=== PATIENT | female | born 1940 | race Caucasian/White ===

== ENCOUNTER 2016-10-12 22:55 | Emergency (ER) | payer OTHER ==
[~2016-10-12] VITALS: Ht 160 cm; Wt 72.6 kg
[~2016-10-12 22:55] MED LIST: ASPIRIN EC81 M1 PO; AUGMENTIN 875-1 EACH PO; BIOTIN1 M1 PO; FLAGYL500 MG PO; LEVOTHYROXINE75 MCG PO; LISINOPRIL20 M1 PO; PROPRANOLOL HCL20 M1 PO; VENLAFAXINE H37.5 M1 PO; VENLAFAXINE HCL75 M1 PO
--- NOTE | 2016-10-13 01:32 | RADIOLOGY REPORT ---
EXAMINATION: XR HAND, RIGHT CLINICAL INFORMATION: Swelling. Rule out fracture. COMPARISON: None TECHNIQUE: AP, lateral, and oblique views of the right hand. FINDINGS: First CMC joint prosthesis is present. No periprosthetic fracture or significant periprosthetic osteolysis. There is marked soft tissue swelling at the dorsum of the hand overlying the metacarpals. No underlying acute fractures are identified. There is moderate to severe degenerative arthritis of the first CMC joint. Moderate degenerative arthritis is also present within the second and third MCP joints and multiple interphalangeal joints, most notably the second and third DIP joints. No erosions are identified. Radiocarpal joint appears relatively well-preserved. IMPRESSION: 1. Marked soft tissue swelling at the dorsum of the right hand without underlying fracture. 2. Moderate multifocal degenerative arthritis, most severe at the triscaphe joint, second and third MCP joints, and a few DIP joints 3. Intact first CMC arthroplasty.
--- NOTE | 2016-10-13 01:47 | ED UPPER/LOWER EXTREMITY COMPL ---
History of Present Illness General Chief Complaint: Hand or Wrist Injury Stated Complaint: RIGHT HAND PAIN Source: patient Exam Limitations: no limitations Vital Signs & Intake/Output Vital Signs & Intake/Output Vital Signs Date Time Temp Pulse Resp B/P Pulse O2 O2 Flow FiO2 Ox Delivery Rate 10/13 0219 96.8 88 18 175/80 98 Room Air 10/13 0201 98 Room Air 10/12 2306 98.9 69 16 185/90 100 Room Air ED Intake and Output 10/13 0000 10/12 1200 Intake Total Output Total Balance Patient 160 lb Weight Allergies Coded Allergies: Sulfa (Sulfonamide Antibiotics) (Mild, RASH 03/21/16) Reconcile Medications Amoxicillin/Potassium Clav (Augmentin 875-125 Tablet) 1 EACH TABLET 1 TAB PO BID acute diverticulitis PLEASE TAKE UNTIL ENTIRE BOTTLE IS FINISHED. Aspirin (Ecotrin*) 81 MG TABLET.DR 1 TAB PO DAILY HEART HEALTH (Reported) Biotin 1 MG TABLET 1 TAB PO DAILY SUPPLEMENT (Reported) Levothyroxine Sodium 75 MCG TABLET 1 TAB PO DAILY Hypothyroidism (Reported) Lisinopril 20 MG TABLET 1 TAB PO DAILY HEART (Reported) Metronidazole (Flagyl) 500 MG TABLET 1 TAB PO BID acute diverticulitis DO NOT DRINK ANY ALCOHOL WHILE TAKING THIS ANTIBIOTIC. PLEASE TAKE UNTIL ENTIRE BOTTLE IS FINISHED. Propranolol HCl 20 MG TABLET 1 TAB PO BID HEART (Reported) Venlafaxine HCl (Venlafaxine HCl ER) 225 MG TAB.ER.24 1 TAB PO QPM MENTAL HEALTH (Reported) Triage Note: PT TO ED FOR SWELLING AND BRUISING TO R HAND, PT ON XARELTO FOR PE PREVENTION. CAN'T REMEMBER IF SHE INJURED IT OR ANY TRAUMA. REPORTS HAND ACHING BUT NORMAL ROM +PULSES AND SENSATION. Triage Nurses Notes Reviewed? yes Onset: Abrupt Duration: hour(s): Timing: single episode today Severity: moderate Pain/Injury Location: Right: Hand. Method of Injury: unknown Modifying Factors: Improves With: rest. Associated Symptoms: swelling, "like a big bruise" Patient currently breastfeeds: No HPI: 75 yo woman on xarelto with swelling of right hand. She does not recall any trauma. She is otherwise well. Past History Travel History Traveled to [place] past 21 day No Medical History Any Pertinent Medical History? 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 No Review of Systems Review of Systems Constitutional: Reports: no symptoms. EENTM: Reports: no symptoms. Respiratory: Reports: no symptoms. Cardiovascular: Reports: no symptoms. Gastrointestinal/Abdominal: Reports: no symptoms. Genitourinary: Reports: no symptoms. Musculoskeletal: Reports: no symptoms. Skin: Reports: no symptoms. Neurological/Psychological: Reports: no symptoms. Hematologic/Endocrine: Reports: no symptoms. Immunological: Reports: no symptoms. All Other Systems: Reviewed and Negative Physical Exam Physical Exam General Appearance: well developed/nourished, mild distress Head: atraumatic Eyes: Bilateral: normal appearance. Ears, Nose, Throat: normal pharynx, normal ENT inspection, hearing grossly normal Neck: normal inspection, supple Cardiovascular/Respiratory: regular rate/rhythm Back: normal inspection Hand Right: [id number] hematoma on dorsum of right hand. no sign of infection. no focal bony tenderness. Skin: intact, normal color, warm/dry Lymphatic: no anterior cervical starr Progress Differential Diagnosis: hematoma vs other. Plan of Care: tabitha bandage to right hand... instructed patient to elevate arm... close follow up advised. Diagnostic Imaging: Viewed by Me: Radiology Read. Discussed w/RAD: Radiology Read. Radiology Impression: right hand... no fx,.... djd... hematoma Comments: PATIENT: CHARLENE MANUEL PRESENT AGE: 75 PATIENT ACCOUNT NO: [id number] : 39 LOCATION: [facility] ORDERING PHYSICIAN: JOSE ALONZO DO SERVICE DATE: 10/12/16 EXAM TYPE: RAD - XRY-HAND, RIGHT EXAMINATION: XR HAND, RIGHT CLINICAL INFORMATION: Swelling. Rule out fracture. COMPARISON: None TECHNIQUE: AP, lateral, and oblique views of the right hand. FINDINGS: First CMC joint prosthesis is present. No periprosthetic fracture or significant periprosthetic osteolysis. There is marked soft tissue swelling at the dorsum of the hand overlying the metacarpals. No underlying acute fractures are identified. There is moderate to severe degenerative arthritis of the first CMC joint. Moderate degenerative arthritis is also present within the second and third MCP joints and multiple interphalangeal joints, most notably the second and third DIP joints. No erosions are identified. Radiocarpal joint appears relatively well-preserved. IMPRESSION: 1. Marked soft tissue swelling at the dorsum of the right hand without underlying fracture. 2. Moderate multifocal degenerative arthritis, most severe at the triscaphe joint, second and third MCP joints, and a few DIP joints 3. Intact first CMC arthroplasty. DICTATED BY: SHAGUFTA ELMORE MD DATE/TIME DICTATED:10/13/16125 OFFSHORING MANAGER:KYRA DATE/TIME TRANSCRIBED:10/13/16125 CONFIDENTIAL, DO NOT COPY WITHOUT APPROPRIATE AUTHORIZATION. <Electronically signed in Other Vendor System> SIGNED BY: SHAGUFTA ELMORE MD 10/13/16 0132 Departure Departure Disposition: HOME OR SELF CARE Condition: Stable Clinical Impression Primary Impression: Osteoarthritis Secondary Impressions: Hematoma Referrals: UNKNOWN (PCP/Family) Departure Forms: Customer Survey General Discharge Information
[2016-10-13 02:19] VITALS: BP 175/80
== END 2016-10-13 02:19 ==
LOC: ERH 22:55
DX: S60.221A Contusion of right hand, initial encounter (principal); M19.041 Primary osteoarthritis, right hand; X58.XXXA Exposure to other specified factors, initial encounter
CPT/HCPCS: 73130-RT

== ENCOUNTER 2017-03-12 09:50 | Emergency (ER) | payer OTHER ==
[~2017-03-12] VITALS: Ht 160 cm; Wt 76.2 kg
[2017-03-12] MEDS ORDERED: XARELTO10 M2 PO (10:32)
--- NOTE | 2017-03-12 10:35 | ED GENERAL ADULT ---
History of Present Illness General Chief Complaint: General Adult Stated Complaint: N/V/D,ABDOMINAL PAIN,SYNCOPE Source: patient, old records Exam Limitations: no limitations Vital Signs & Intake/Output Vital Signs & Intake/Output Vital Signs Date Time Temp Pulse Resp B/P B/P Pulse O2 O2 Flow FiO2 Mean Ox Delivery Rate 03/12 1215 73 18 138/83 98 Room Air 03/12 1015 96.0 80 18 113/77 99 Room Air Allergies Coded Allergies: Sulfa (Sulfonamide Antibiotics) (Mild, RASH 03/21/16) Reconcile Medications Biotin 1 MG TABLET 1 TAB PO DAILY SUPPLEMENT (Reported) Hyoscyamine (Levsin) 0.125 MG TABLET 1 TAB PO Q4 PRN abdominal spasms Levothyroxine Sodium 75 MCG TABLET 1 TAB PO DAILY Hypothyroidism (Reported) Lisinopril 20 MG TABLET 1 TAB PO DAILY HEART (Reported) Ondansetron (Zofran Odt) 4 MG TAB.RAPDIS 1 TAB SL TID PRN nausea Propranolol HCl 20 MG TABLET 1 TAB PO BID HEART (Reported) Rivaroxaban (Xarelto) 10 MG TABLET 1 TAB PO DAILY BLOOD THINNER (Reported) Venlafaxine HCl (Venlafaxine HCl ER) 75 MG CAP.ER.24H 1 CAP PO DAILY MENTAL HEALTH (Reported) Triage Note: C/O LOWER ABDOMINAL CRAMPING AND DIARRHEA X 6 HOURS. VOMITED A FEW DAYS. ALSO C/O WEAKNESS AND LEG CRAMPS. STATES SHE HAD A SIMILIAR EPISODE LAST WEEK. Triage Nurses Notes Reviewed? yes Onset: Gradual Duration: hour(s): (7) Timing: remote history Injury Environment: home Severity: moderate No Modifying Factors: none HPI: Patient is a 76-year-old female with history of diverticulitis, sigmoidectomy presenting to the emergency Department with chief complaint of lower and upper abdominal cramping with watery diarrhea has been going on for the past 7-8 hours. She also reports an associated episode of nausea with 2 episodes of emesis during this time. Patient reports 4 episodes of loose watery stool. No blood in the stool. Denies any dark stool. No fevers or chills. No recent travel or recent antibiotic use. Denies taking anything to help with symptoms, she reports that she had similar symptoms last weekend which resolved with Pepto -Bismol. She had a sigmoidectomy done 8 months ago with no complications since. Her surgeon was someone out of [place] who is now in [place]. Denies any urinary frequency or urgency or dysuria. Also reporting leg cramping since onset of nausea vomiting and diarrhea. She has not been able to take anything by mouth since last night. (ADDI ART) Past History Travel History Traveled to [place] past 21 day No Medical History Any Pertinent Medical History? 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 No (ADDI ART) Review of Systems Review of Systems Constitutional: Reports: malaise, weakness. Comments Review of systems: See HPI, All other systems negative. Constitutional, no chills fever or weight loss HEENT: No visual changes no sore throat no congestion Cardiovascular: No chest pain ,palpitation , orthopnea or ankle swelling Skin, no jaundice no rashes Respiratory: No dyspnea cough sputum or hemoptysis GI: pos n/v/d : No dysuria No hematuria Muscle skeletal: no back pain, no neck pain, Neurologic: No numbness no confusion no boss Psych: No stress anxiety or depression,. Heme/endocrine: No bruising no bleeding no polyuria or polydipsia Immunology: No splenectomy or history of AIDS (ADDI ART) Physical Exam Physical Exam General Appearance: well developed/nourished, no apparent distress, alert, awake , comfortable Comments: Well-developed well-nourished person in no acute distress HEENT: Normal EENT exam, extraocular motion intact, no nystagmus. Pupils equally round and reactive to light and accommodation. Nose is atraumatic. External auditory canal and Tympanic membranes clear. Pharynx normal. No swelling or edema. Neck: Supple, no lymphadenopathy, normal range of motion without pain or tenderness Back: Nontender, no CVA tenderness. Full range of motion Cardiovascular: Regular rate and rhythms no murmurs rubs or gallops, normal JVP Respiratory: Chest nontender. No respiratory distress.breath sounds clear to auscultation bilaterally Abdomen: Soft, mild tenderness of palpation in the right upper quadrant and periumbilical region, no rebound or guarding, nondistended, no appreciable organomegaly. Normal bowel sounds. No ascites Extremity: No edema, no calf tenderness to palpation, normal and equal pulses. Neuro: Alert oriented x3, motor sensory normal, cranial nerves II through XII grossly intact. Cerebellar testing is unremarkable. Skin: No appreciable rash on exposed skin, skin is warm and dry. Psych: Mood and affect is normal, memory and judgment is normal. Core Measures ACS in differential dx? No CVA/TIA Diagnosis: No Severe Sepsis Present: No Septic Shock Present: No (MORENITA OWUSU,ADDI) Progress Differential Diagnoses I considered the following diagnoses in my evaluation of the patient: Diverticulitis, diverticulosis, dehydration, likely abnormality Plan of Care: Orders Procedure Date/time Status URINALYSIS 03/12 1053 Complete TROPONIN LEVEL 03/12 1053 Complete LIPASE 03/12 1053 Complete LACTIC ACID 03/12 1053 Complete COMPREHENSIVE METABOLIC PANEL 03/12 1053 Complete CBC WITHOUT DIFFERENTIAL 03/12 1053 Complete EKG 03/12 1053 Active Laboratory Tests 03/12/17 1353: Lactic Acid Cancelled 03/12/17 1227: Urine Color STRAW, Urine Clarity CLEAR, Urine pH 6.0, Ur Specific [place] 1.010, Urine Protein NEG, Urine Ketones NEG, Urine Nitrite NEG, Urine Bilirubin NEG, Urine Urobilinogen 0.2, Ur Leukocyte Esterase NEG, Ur Microscopic EXAM NOT REQUIRED, Urine Hemoglobin NEG, Urine Glucose NEG 03/12/17 1126: Anion Gap 10, Estimated GFR > 60, BUN/Creatinine Ratio 30.0 H, Glucose 101 H, Lactic Acid 1.5, Calcium 8.7, Total Bilirubin 0.6, AST 24, ALT 35, Alkaline Phosphatase 91, Troponin I < 0.01, Total Protein 7.4, Albumin 4.1, Globulin 3.3, Albumin/Globulin Ratio 1.2, Lipase 110, CBC w Diff MAN DIFF ORDERED, RBC 4.60, MCV 95.6, MCH 32.0 H, RDW 14.2, MPV 7.8, Gran % 90.4 H, Lymphocytes % 5.2 L, Monocytes % 3.1, Eosinophils % 0.8, Basophils % 0.5, Absolute Granulocytes 12.0 H, Segmented Neutrophils 87 H, Band Neutrophils 2, Absolute Lymphocytes 0.7 L, Lymphocytes 6 L, Monocytes 4, Absolute Monocytes 0.4, Eosinophils 1, Absolute Eosinophils 0.1, Absolute Basophils 0.1, Platelet Estimate ADEQUATE, Normocytic RBCs VERIFIED, Normochromic RBCs VERIFIED, PUBS MCHC 33.5 Diagnostic Imaging: Viewed by Me: CT Scan. Discussed w/RAD: CT Scan. Radiology Impression: PATIENT: CHARLENE MANUEL PRESENT AGE: 76 PATIENT ACCOUNT NO: [id number] : 39 LOCATION: [facility] ORDERING PHYSICIAN: ADDI OWUSU SERVICE DATE: 03/12/17 EXAM TYPE: CAT - CT ABD & PELVIS W IV CONTRAST EXAMINATION: CT ABDOMEN AND PELVIS WITH CONTRAST CLINICAL INFORMATION: Evaluate for diverticulitis. Abdominal pain and diarrhea. COMPARISON: CT scan of the abdomen and pelvis 03/21/2016. TECHNIQUE: Multidetector volumetric imaging was performed of the abdomen and pelvis before and after the IV administration of 98 mL of Optiray 320 intravenous contrast. Sagittal and coronal reformatted images were obtained on the technologist's workstation. DLP: 480.95 mGy-cm FINDINGS: LUNG BASES: Lung bases are clear. There is no pleural or pericardial effusion. LIVER, GALLBLADDER , AND BILIARY TREE: There attenuation is homogeneous and there is no evidence of a discrete hepatic parenchymal mass. A few small hyperdense calculi layers within the gallbladder neck. The gallbladder is otherwise unremarkable. No intrahepatic or extrahepatic biliary ductal dilatation. PANCREAS: Unremarkable. SPLEEN: Unremarkable. ADRENAL GLANDS: Unremarkable. KIDNEYS AND URETERS: There is a horseshoe kidney with a well marginated benign-appearing cystic lesion within the isthmus measuring 4.8 cm in diameter. Otherwise there is no discrete renal parenchymal mass. No hydroureteronephrosis. No nephrolithiasis and no worrisome mass or calcification is visualized along the expected course of either ureter. BLADDER: Unremarkable. GASTROINTESTINAL TRACT: There are chronic changes of a sigmoid colectomy. The colon is otherwise unremarkable. The appendix is not definitively visualized. There are no discrete inflammatory changes at the base of the cecum to suggest acute appendicitis. There is a small hiatal hernia. Stomach and small bowel is otherwise unremarkable. There is no free intraperitoneal air or fluid. ABDOMINAL WALL: There chronic changes of a midline laparotomy. No evidence of incisional hernia. LYMPH NODES: There are no pathologically enlarged mesenteric or retroperitoneal lymph nodes. VASCULAR: There are a few scattered atheromatous calcifications involving abdominal aorta and iliac vessels. The inferior vena cava is unremarkable. PELVIC VISCERA: The uterus is surgically absent. There is no discrete adnexal mass. OSSEOUS STRUCTURES: There is multilevel degenerative spondylosis within the mid to lower lumbar spine with loss of intervertebral disc height, sclerotic degenerative endplate changes, and intervertebral vacuum disc phenomenon at multiple levels. There is a spinal stimulator with an electrode that traverses the right S3 sacral foramen. There is degenerative arthrosis of both hips. No acute osseous finding. No worrisome lytic or blastic osseous lesion. IMPRESSION: There is no discrete finding to provide an explanation for the patient's abdominal pain. There are chronic changes of a sigmoid colectomy. No evidence of acute diverticulitis. No worrisome mass or collection within the left lower quadrant. No free intraperineal air or fluid. Of note there is a horseshoe kidney. No evidence of obstructive uropathy. A few calculi layer within the gallbladder neck. No evidence of acute cholecystitis. DICTATED BY: NICK JAMES,RONDA Whitt DATE/TIME DICTATED:03/12/171299 PLASTERER SPOT:KYRA DATE/TIME TRANSCRIBED:03/12/171299 CONFIDENTIAL, DO NOT COPY WITHOUT APPROPRIATE AUTHORIZATION. <Electronically signed in Other Vendor System> Initial ED EKG: normal sinus rhythm at 77 bpm Prior EKG: unchanged Comments: Patient feeling much improved after IV hydration. Would like to try something to drink. Patient given alannah esperanza. Patient was informed of CT results and lab work results. Mild elevation in white blood cell count, nonspecific could be related to viral infection. Patient also has elevated BUN. Slight dehydration. This could be the cause of leg cramping. Signs of acute diverticulitis a likely nonspecific viral gastroenteritis. Discussed with Dr. Mullins and he agrees with plan. (ADDI ART) Departure Departure Time of Disposition: 1321 Disposition: HOME OR SELF CARE Condition: Stable Clinical Impression Primary Impression: Diarrhea Qualifiers: Diarrhea type: unspecified type Qualified Code: R19.7 - Diarrhea, unspecified Secondary Impressions: Dehydration Near syncope Vomiting Qualifiers: Vomiting type: unspecified Vomiting Intractability: unspecified Nausea presence: with nausea Qualified Code: R11.2 - Nausea with vomiting, unspecified Referrals: CYNDI ZEPEDA MD (PCP/Family) AMINAH CLEMENT MD Additional Instructions: Follow-up with gastroenterology if symptoms persist. Increase fluids. Take Zofran as prescribed to help with nausea. Take Levsin help with abdominal spasms. Return for worsening symptoms or concerns. Your prescriptions were sent to the [facility] pharmacy. They should be waiting for you. Follow-up with your primary care physician if symptoms persist for a stool sample culture. Departure Forms: Customer Survey General Discharge Information Prescriptions: Current Visit Scripts Ondansetron (Zofran Odt) 1 TAB SL TID PRN nausea #10 TAB Hyoscyamine (Levsin) 1 TAB PO Q4 PRN abdominal spasms #40 TAB (ADDI ART) PA/OFFICER CAPTAIN Co-Sign Statement Statement: ED Attending supervision documentation- [x] I saw and evaluated the patient. I have also reviewed all the pertinent lab results and diagnostic results. I agree with the findings and the plan of care as documented in the PA's/OFFICER CAPTAIN's documentation. [] I have reviewed the ED Record and agree with the PA's/OFFICER CAPTAIN's documentation. [] Additions or exceptions (if any) to the PAs/OFFICER CAPTAIN's note and plan are summarized below: [] (ALEX JAMES,JOSE Leigh) Critical Care Note Critical Care Note Critical Care Time: non-applicable (ADDI ART)
[2017-03-12 11:46] LABS: ABSOLUTE BASOPHIL COUNT 0.1 /CUMM (0.0-0.2); ABSOLUTE EOSINOPHIL COUNT 0.1 /CUMM (0.0-0.7); ABSOLUTE LYMPH COUNT 0.7 /CUMM (1.2-3.4); ABSOLUTE MONOCYTE COUNT 0.4 /CUMM (0.10-0.60); BASOPHIL % 0.5 % (0.0-2.0); EOSINOPHIL % 0.8 % (0-5); MEAN CORPUSCULAR HGB CONC 33.5 G/DL (33.0-37.0); MEAN CORPUSCULAR VOLUME 95.6 FL (81.0-99.0); MEAN PLATELET VOLUME 7.8 FL (7.4-10.4); PLATELET COUNT 245 /CUMM (130-400); RBC DISTRIBUTION WIDTH 14.2 % (11.5-14.5); WHITE BLOOD CELL COUNT 13.3 /CUMM (4.8-10.8)
[2017-03-12 11:54] LABS: GRANULOCYTE % 90.4 % (42.2-75.2)
--- NOTE | 2017-03-12 13:16 | CT SCAN REPORT ---
EXAMINATION: CT ABDOMEN AND PELVIS WITH CONTRAST CLINICAL INFORMATION: Evaluate for diverticulitis. Abdominal pain and diarrhea. COMPARISON: CT scan of the abdomen and pelvis 03/21/2016. TECHNIQUE: Multidetector volumetric imaging was performed of the abdomen and pelvis before and after the IV administration of 98 mL of Optiray 320 intravenous contrast. Sagittal and coronal reformatted images were obtained on the technologist's workstation. DLP: 480.95 mGy-cm FINDINGS: LUNG BASES: Lung bases are clear. There is no pleural or pericardial effusion. LIVER, GALLBLADDER, AND BILIARY TREE: There attenuation is homogeneous and there is no evidence of a discrete hepatic parenchymal mass. A few small hyperdense calculi layers within the gallbladder neck. The gallbladder is otherwise unremarkable. No intrahepatic or extrahepatic biliary ductal dilatation. PANCREAS: Unremarkable. SPLEEN: Unremarkable. ADRENAL GLANDS: Unremarkable. KIDNEYS AND URETERS: There is a horseshoe kidney with a well marginated benign-appearing cystic lesion within the isthmus measuring 4.8 cm in diameter. Otherwise there is no discrete renal parenchymal mass. No hydroureteronephrosis. No nephrolithiasis and no worrisome mass or calcification is visualized along the expected course of either ureter. BLADDER: Unremarkable. GASTROINTESTINAL TRACT: There are chronic changes of a sigmoid colectomy. The colon is otherwise unremarkable. The appendix is not definitively visualized. There are no discrete inflammatory changes at the base of the cecum to suggest acute appendicitis. There is a small hiatal hernia. Stomach and small bowel is otherwise unremarkable. There is no free intraperitoneal air or fluid. ABDOMINAL WALL: There chronic changes of a midline laparotomy. No evidence of incisional hernia. LYMPH NODES: There are no pathologically enlarged mesenteric or retroperitoneal lymph nodes. VASCULAR: There are a few scattered atheromatous calcifications involving abdominal aorta and iliac vessels. The inferior vena cava is unremarkable. PELVIC VISCERA: The uterus is surgically absent. There is no discrete adnexal mass. OSSEOUS STRUCTURES: There is multilevel degenerative spondylosis within the mid to lower lumbar spine with loss of intervertebral disc height, sclerotic degenerative endplate changes, and intervertebral vacuum disc phenomenon at multiple levels. There is a spinal stimulator with an electrode that traverses the right S3 sacral foramen. There is degenerative arthrosis of both hips. No acute osseous finding. No worrisome lytic or blastic osseous lesion. IMPRESSION: There is no discrete finding to provide an explanation for the patient's abdominal pain. There are chronic changes of a sigmoid colectomy. No evidence of acute diverticulitis. No worrisome mass or collection within the left lower quadrant. No free intraperineal air or fluid. Of note there is a horseshoe kidney. No evidence of obstructive uropathy. A few calculi layer within the gallbladder neck. No evidence of acute cholecystitis.
[2017-03-12] MEDS ORDERED: LEVSIN0.125 M1 PO (13:34)
[2017-03-12] MEDS ORDERED: ZOFRAN ODT4 M1 SL (13:34)
[2017-03-12 14:26] VITALS: BP 160/97
== END 2017-03-12 14:27 ==
LOC: ERH 09:50
PROVIDERS: Physician Assistant
DX: R19.7 Diarrhea, unspecified (principal); E86.0 Dehydration; R55 Syncope and collapse; R11.10 Vomiting, unspecified
CPT/HCPCS: 74177; 81003; 93005; 93010; 96360

== ENCOUNTER 2017-12-16 00:43 | Inpatient (IN) | payer OTHER ==
[~2017-12-16] VITALS: Ht 160 cm; Wt 85.4 kg
[~2017-12-16 00:43] MED LIST changes: +CITRACAL + D M1 EACH PO; +DEXILANT60 M1 PO; +ELIQUIS2.5 M1 PO; +FERROUS SULFAT325 M3 PO; +LEVSIN0.125 M1 PO; +PROPRANOLOL HCL40 M1 PO; +VITAMIN B-121000 MC3 PO; +VITAMIN D5000 UNIT PO; +XARELTO10 M2 PO; +ZOFRAN ODT4 M1 SL
--- NOTE | 2017-12-16 09:50 | Operative Report ---
Operative/Inv Procedure Report Surgery Date: 12/16/17 Name of Procedure: Left total knee arthroplasty Pre-Operative Diagnosis: Primary left knee osteoarthritis Post-Operative Diagnosis: Same Estimated Blood Loss: 50ml to 100ml Surgeon/Shingle Packer: Herb JAMES,Omero Edmondson PA Anesthesia: block Implants: Striker triathlon total knee system-size 4 femur, size 4 tibia, 11 mm cruciate retaining polyethylene, 31 patella Drains: None Specimens: Femoral, tibial, patellar bone, meniscal tissues Microbiology: Urine Tourniquet: 53 minutes Complications: None Condition: Stable Operative Indication: Patient is a 76-year-old woman with a long history of bilateral knee pain and diagnosed with osteoarthritis many years ago. She's been treated in our office as well as other office for this diagnosis. Treatment has included medications, cortisone injection and Synvisc injection. Unfortunately, conservative measures did not provide any significantly long relief and patient wished to proceed with surgical management. Risks benefits and expectations of the surgical procedure were discussed included but were not limited to persistent knee pain, need for subsequent surgery, infection, DVT, injury to blood vessel or nerve, anesthesia risks. Also, in her case she is a higher risk for DVT/PE due to previous history of DVT and PE. She had a preoperative IVC filter placed by her vascular doctor. Also we would not use TXA for our procedure for this reason. However she understands that she is high risk for developing a blood clot since it has occurred during and after previous surgical procedures. She has also been evaluated by her spring coverer. Her anticoagulant was held 2 days prior to surgery and will be restarted as soon as possible in the morning Operative/Procedure Note Note: Patient was brought to the operating room and transferred to the operating table. Once under appropriate anesthesia the left lower extremity was prepped and draped in standard fashion. Preoperative IV antibiotic's were given prophylactically. Leg was elevated exsanguinated and tourniquet was inflated. An anterior incision was made for anticipated medial parapatellar approach to the knee. Incision was taken down sharply to the underlying retinaculum. Medial parapatellar approach was used with a minimal extension into the quadriceps tendon. Osteophytes were excised. Remnants of the medial lateral meniscal tissues were excised. Remnants of the ACL excised. Dissection was taken along the medial aspect to improve soft tissue balancing. The knee was then flexed with the patella subluxed exposing the diffuse degenerative changes. And sensation are changes were noted medially but also the posterior lateral corner of the tibia. With eburnated bone. I then entered the intramedullary canal with the intramedullary drill. The distal femoral cutting jig was pinned in place for a 6 valgus cut. Cut was made while protecting the soft tissues. The femur was incised was size 4. Size 4 cuts were made. I was satisfied with the preparation of femur. I then used the external tibial alignment guide to pin the cutting block in neutral position from medial to lateral and reproducing patient's posterior slow-paced on preoperative templating and intraoperative findings. Again soft tissues were protected medially laterally and a PCL retractor was placed posteriorly after the PCL was recessed to balance. The cut was made. The tibia was incised was size 4. Trial reduction with a size 4 tibia 9 mm insert and a size 4 femur were used. Symmetric soft tissue tension noted that this would be confirmed later on the case with sizing of the polyethylene component. Took the knee through range of motion and I was satisfied with the stability in full extension mid flexion and full flexion to gravity. Patella was then measured and appropriate thickness was removed and replaced with a size 31 patella. 3 lug holes were drilled. Again the knee was taken through range of motion the tibial rotation was marked and the 2 lug holes were drilled in the femur. All trial closed with then removed and I finished preparation of the tibia with the appropriate sized tibial punch. Copious irrigation of the knee followed as the cement was being mixed on the back table. We used the anterior chamfer bone of the distal femur to plug the intramedullary hole in the distal femur to minimize postoperative hemarthrosis and swelling. Once the cement was ready was applied to the dry clean bony surfaces of the tibia. A size 4 tibia was impacted in place with the appropriate rotation as previously determined area excess cement was removed.. Cement was applied to the dry clean bony surfaces of distal femur. Size 4 femur was impacted in place and excess cement was removed with curettes. Then polyethylene insert was placed and the knee was taken out to full extension. Cement was applied to the dry clean bony surfaces of the patella. The 31 patella was impacted in place and excess cement was removed with a knife. While the cement was hardening I did a periarticular pericapsular injection of a cocktail which included ropivacaine with epinephrine and Toradol for postoperative pain and inflammation management. Once the cement hardened I took the knee through range of motion. The trial 11 mm insert as well. I was satisfied with the full extension as well as mid flexion stability and full flexion to gravity. The trial polyethylene was removed area the tibial tray was copiously irrigated. I major there was no remaining soft tissue, bone fragments or cement fragments within the tibial tray. I then impacted the definitive size 11 mm cruciate retaining polyethylene insert. Locking mechanism was confirmed. Again the knee was taken through range of motion I was satisfied with the stability and range of motion. Tourniquet was deflated at 53 minutes. Hemostasis was obtained. The medial retinacular incision was then closed with interrupted #1 Vicryl sutures including the femoral extension into the quadriceps tendon. Subcutaneous tissues closed in 2 layers with 2-0 Vicryl and skin was closed with a running 3-0 Vicryl suture with the knee in flexion. Appropriate dressings were applied and patient was awakened and taken the recovery room in good condition. No intraoperative complications. Blood loss was approximately 50 mL Discharge Disposition: PACU
--- NOTE | 2017-12-16 12:04 | Admission Core Measures ---
Acute Coronary Syndrome (CM) ACS Core Measures Acute Coronary Syndrome Diagnosis No Congestive Heart Failure (NEW) CHF Core Measures Congestive Heart Failure Diagnosis No Cerebrovascular Accident (NEW) CVA Core Measures CVA/TIA Diagnosis No Venous Thromboembolism VTE Core Terry (View Protocol) VTE Risk Factors Surgery No Mechanical VTE Prophylaxis d/t N/A MechProphylax Ordered No VTE Pharm Prophylaxis d/t NA PharmProphylax ordered Problem List As ranked by this Provider includes Assessment & Plan 1. Unilateral primary osteoarthritis, left knee HOME MEDS Home Med List Apixaban (Eliquis) 2.5 MG TABLET 1 TAB PO BID BLOOD THINNER (Reported) Biotin (Unknown Strength) TABLET (Unknown Dose) PO DAILY SUPPLEMENT (Reported ) Calcium Citrate/Vitamin D3 (Citracal + D Maximum Caplet) (Unknown Strength) TABLET (Unknown Dose) PO DAILY SUPPLEMENT (Reported) Cholecalciferol (Vitamin D3) (Vitamin D) 5,000 UNIT TABLET 1 TAB PO DAILY SUPPLEMENT (Reported) Cyanocobalamin (Vitamin B-12) 1,000 MCG TABLET 1 TAB PO DAILY SUPPLEMENT ( Reported) Dexlansoprazole (Dexilant) 60 MG CAP.DR.BP 1 CAP PO DAILY GI (Reported) Ferrous Sulfate 325 MG (65 MG IRON) TABLET 1 TAB PO DAILY SUPPLEMENT ( Reported) Levothyroxine Sodium 75 MCG TABLET 1 TAB PO DAILY Hypothyroidism (Reported) Lisinopril 20 MG TABLET 1 TAB PO DAILY BP (Reported) Propranolol HCl 40 MG TABLET 1 TAB PO BID BP (Reported) Venlafaxine HCl (Venlafaxine HCl ER) 75 MG CAP.ER.24H 1 CAP PO DAILY MENTAL HEALTH (Reported)
--- NOTE | 2017-12-16 12:07 | Surgical Discharge Summary ---
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 Spouse Services at Home: None What is Your Primary Language? Turkish Review of Systems: See H&P Hospital Course Course Attending Physician: Delvis Estevez MD Primary Care Physician: Lennox Ng MD Hospital Course: Patient was admitted to the hospital for an elective total joint replacement. Procedure was tolerated well and patient was transferred to a general surgical floor. Diet was advanced and tolerated. Physical therapy performed evaluation and treatment. At time of hospital discharge, vital signs were stable, neurovascular status was intact, and pain was controlled with the use of oral pain medications. Allergies: Coded Allergies: Sulfa (Sulfonamide Antibiotics) (Mild, RASH 03/21/16) Significant Procedures: Left total knee replacement Disposition Summary Disposition Principal Diagnosis: Primary osteoarthritis left knee Additional Diagnosis: Same, status post left total knee replacement Discharge Disposition: SNF Discharge Instructions General Discharge Information Code Status: Full Code Patient's Diet: Resume regular healthy diet Patient's Activity: WBAT, use assistive devices as needed Follow-Up Instructions/Appts: Call to confirm/schedule appointment to be seen 2 weeks from surgery Medications at Discharge Discharge Medications: Continue taking these medications: Lisinopril (Lisinopril) 20 MG TABLET 1 Tablet ORAL DAILY Qty = 30 Comments: Last Taken: 12/19/17 Time: 1030 AM Venlafaxine HCl (Venlafaxine HCl ER) 75 MG CAP.ER.24H 1 Capsule ORAL DAILY Comments: Last Taken: 12/18/17 Time 945 PM Biotin (Biotin) (Unknown Strength) TABLET Unknown Dose ORAL DAILY Comments: NOT GIVEN IN HOSPITAL Levothyroxine Sodium (Levothyroxine Sodium) 75 MCG TABLET 1 Tablet ORAL DAILY Comments: Last Taken: 12/19/17 Time: 630 AM Apixaban (Eliquis) 2.5 MG TABLET 1 Tablet ORAL TWICE DAILY Comments: Last Taken: 12/19/17 Time: 1030AM Propranolol HCl (Propranolol HCl) 40 MG TABLET 1 Tablet ORAL TWICE DAILY Comments: Last Taken: 12/19/17 Time: 1030 AM Calcium Citrate/Vitamin D3 (Citracal + D Maximum Caplet) (Unknown Strength) TABLET Unknown Dose ORAL DAILY Comments: NOT GIVEN IN THE HOSPITAL Cholecalciferol (Vitamin D3) (Vitamin D) 5,000 UNIT TABLET 1 Tablet ORAL DAILY Comments: NOT GIVEN IN THE HOSPITAL Cyanocobalamin (Vitamin B-12) 1,000 MCG TABLET 1 Tablet ORAL DAILY Comments: NOT GIVEN IN THE HOSPITAL Ferrous Sulfate (Ferrous Sulfate) 325 MG (65 MG IRON) TABLET 1 Tablet ORAL DAILY Comments: NOT GIVEN IN THE HOSPITAL Dexlansoprazole (Dexilant) 60 MG CHIQUI.BP 1 Capsule ORAL DAILY Comments: NOT GIVEN IN THE HOSPITAL Start taking the following new medications: Oxycodone HCl/Acetaminophen (Percocet 5-325 MG Tablet) 5 MG-325 MG TABLET 1-2 Tablet ORAL EVERY 4-6 HOURS as needed for PAIN Qty = 36 No Refills Comments: Last Taken: 2 TABS TAKEN ON 12/19/17 Time: 1014 AM PLEASE NOTE OXYCODONE 10 MG GIVEN 12/19/17 @ 1030AM
--- NOTE | 2017-12-16 12:11 | Patient Discharge Instructions ---
Discharge Instructions General Discharge Information You were seen/treated for: Left knee pain related to osteoarthritis You had these procedures: Left total knee replacement Watch for these problems: Increasing pain despite the use of pain medication Increasing redness, warmth or swelling Drainage of any type from incision Inability to bear weight on operative leg Persistent nausea and vomiting Fever greater than 101.5 degrees Other wound care: Please keep wound clean and dry. No ointments or lotions of any type on or near incision. Your dressing will be changed by your nurse on the second day after your surgery. Daily dry dressing changes are recommended each day thereafter. You may shower 48hr after surgery. Do not soak your wound- no tub baths or swimming. Diet Continue normal diet: Yes Activity Activity Limited to: Weight bear as tolerated Additional ACTIVITY Info: Use assistive devices as needed Acute Coronary Syndrome Inclusion Criteria At DC or during hospital stay patient has or had the following: ACS DIAGNOSIS No Discharge Core Measures Meds if any: Prescribed or Continued at Discharge Meds if any: NOT Prescribed or Continued at Discharge Congestive Heart Failure Inclusion Criteria At DC or during hospital stay patient has or had the following: CHF DIAGNOSIS No Discharge Core Measures Meds if any: Prescribed or Continued at Discharge Meds if any: NOT Prescribed or Continued at Discharge Cerebrovascular accident Inclusion Criteria At DC or during hospital stay patient has or had the following: CVA/TIA Diagnosis No Discharge Core Measures Meds if any: Prescribed or Continued at Discharge Meds if any: NOT Prescribed or Continued at Discharge Venous thromboembolism Inclusion Criteria VTE Diagnosis No VTE Type NONE VTE Confirmed by (Test) NONE Discharge Core Measures - Per Current guidelines, there needs to be overlap - treatment for the first 5 days of Warfarin therapy. - If discharged on Warfarin prior to 5 days of - overlap therapy, the patient will need to be - assessed for post discharge needs including - *Post discharge parental anticoagulation - *Warfarin and/or parental anticoagulation education - *Follow up date to check INR post discharge At least 5 days overlap therapy as Inpatient No Meds if any: Prescribed or Continued at Discharge Note: Overlap Therapy is Warfarin and Anticoagulant Meds if any: NOT Prescribed or Continued at Discharge Note: Overlap Therapy is Warfarin and Anticoagulant Meds if any: NOT Prescribed or Continued at Discharge
--- NOTE | 2017-12-16 13:50 | PN- Orthopedic ---
Subjective Subjective: Patient is comfortable postoperatively. She has some mild throbbing sensation in the proximal knee region anterior aspect. She states that she feels well otherwise. Patient states she has a history of DVT and PE 2, on 2 separate occasions postoperatively, she has an IVC filter Objective Vital Signs and I&Os Intake & Output 12/16 1600 12/16 0800 12/16 0000 12/15 1600 12/15 0800 12/15 0000 Intake Total Output Total Balance Patient 176 lb Weight Vital signs stable, afebrile Physical Exam: Well-developed well-nourished no apparent distress. HEENT: Atraumatic, extraocular motion intact Neck: Supple, no lymphadenopathy Respiratory: No respiratory distress Extremities: No edema LEFT lower extremity dressing in place, Dressing clean dry and intact On Q in place Compression wrap in place. ALPS in place Neurovascularly intact distally Bilateral calves are supple, nontender. Neuro: Alert and oriented x3 Psych: Mood affect normal, normal memory normal judgment. Skin: Warm and dry, no rash on exposed skin Assessment/Plan Assessment/Plan Postop day #0 status post left total knee arthroplasty Perioperative antibiotics. Pain medication as needed. Out of bed Physical therapy, weightbearing as tolerated IV fluids cont on-Q Regular diet Follow a.m. labs Eliquis for DVT prophylaxis (history of DVT and PE 2 postoperatively, has IVC filter) ALPS for DVT prophylaxis Regular home meds Dressing change postop day 2 plan for transfter to ecf wed/th Core Measures Venous Thromboembolism VTE Risk Factors Surgery No Mechanical VTE Prophylaxis d/t N/A MechProphylax Ordered No VTE Pharm Prophylaxis d/t NA PharmProphylax ordered
[2017-12-16 13:55] VITALS: BP 125/87
[2017-12-16 16:10] VITALS: BP 120/81
[2017-12-16 18:48] VITALS: BP 110/80
[2017-12-16 20:00] VITALS: BP 115/72
[2017-12-17 02:04] VITALS: BP 112/64
[2017-12-17 06:53] VITALS: BP 100/68
--- NOTE | 2017-12-17 07:26 | PN- Orthopedic ---
See Addendum Subjective Subjective: Patient feeling well, no voiced complaints, pain is controlled, no chest pain or shortness of breath no fever. Objective Vital Signs and I&Os Vital Signs Date Time Temp Pulse Resp B/P B/P Pulse O2 O2 Flow FiO2 Mean Ox Delivery Rate 12/17 0653 98.1 68 20 100/68 91 Room Air 12/17 0204 97.9 77 20 112/64 98 Room Air 12/16 2215 77 110/71 12/16 2000 98.3 74 20 115/72 94 Room Air 12/16 1848 98.5 68 18 110/80 97 12/16 1610 98.8 68 18 120/81 97 12/16 1430 148/70 12/16 1355 98.1 73 16 125/87 94 Room Air Intake & Output 12/17 0800 12/17 0000 12/16 1600 12/16 0800 12/16 0000 12/15 1600 Intake Total 900 465 850 Output Total 650 900 Balance 250 -435 850 Intake, IV 600 225 600 Intake, Oral 300 240 250 Output, Urine 650 900 Patient 176 lb Weight Physical Exam: Well-developed well-nourished no apparent distress. HEENT: Atraumatic, extraocular motion intact Neck: Supple, no lymphadenopathy Respiratory: No respiratory distress Extremities: No edema LEFT lower extremity dressing in place, Dressing is clean dry and intact Range of motion is 0-60. Compression wrap in place. ALPS in place Neurovascularly intact distally Bilateral calves are supple, nontender. Neuro: Alert and oriented x3 Psych: Mood affect normal, normal memory normal judgment. Skin: Warm and dry, no rash on exposed skin Assessment/Plan Assessment/Plan Postop day #1 status post left total knee arthroplasty Perioperative antibiotics. Pain medication as needed. Out of bed Physical therapy, weightbearing as tolerated DC IV fluids cont on-Q until tomorrow DC [place] Regular diet Follow a.m. labs Eliquis for DVT prophylaxis (history of DVT and PE 2 postoperatively, has IVC filter) ALPS for DVT prophylaxis Regular home meds Dressing change tomorrow plan for transfter to ecf wed/thurs Core Measures Venous Thromboembolism VTE Risk Factors Surgery No Mechanical VTE Prophylaxis d/t N/A MechProphylax Ordered No VTE Pharm Prophylaxis d/t NA PharmProphylax ordered
[2017-12-17 08:49] LABS: ABSOLUTE BASOPHIL COUNT 0 /CUMM (0.0-0.2); ABSOLUTE EOSINOPHIL COUNT 0 /CUMM (0.0-0.7); ABSOLUTE GRANULOCYTE CT 9.9 /CUMM (1.4-6.5); ABSOLUTE LYMPH COUNT 1.8 /CUMM (1.2-3.4); ABSOLUTE MONOCYTE COUNT 0.8 /CUMM (0.10-0.60); BASOPHIL % 0.2 % (0.0-2.0); EOSINOPHIL % 0.1 % (0-5); GRANULOCYTE % 79.3 % (42.2-75.2); HEMATOCRIT 28.4 % (37-47); MEAN CORPUSCULAR HGB 33.3 PG (27.0-31.0); MEAN CORPUSCULAR HGB CONC 34.3 G/DL (33.0-37.0); MEAN CORPUSCULAR VOLUME 97.1 FL (81.0-99.0); MEAN PLATELET VOLUME 7.6 FL (7.4-10.4); PLATELET COUNT 193 /CUMM (130-400); RBC DISTRIBUTION WIDTH 13.7 % (11.5-14.5); RED BLOOD CELL CT 2.93 /CUMM (4.20-5.40); WHITE BLOOD CELL COUNT 12.5 /CUMM (4.8-10.8)
[2017-12-17 15:01] VITALS: BP 134/68
[2017-12-17 22:41] VITALS: BP 111/73
[2017-12-18 06:51] VITALS: BP 114/74
--- NOTE | 2017-12-18 07:18 | PN- Orthopedic ---
See Addendum Subjective Subjective: On-q removed, pt with worsening pain since. percocet helped, needed morphine IV for breakthrough. no other complaints, no fever or illness. no cp, sob or calf pain. Objective Vital Signs and I&Os Vital Signs Date Time Temp Pulse Resp B/P B/P Pulse O2 O2 Flow FiO2 Mean Ox Delivery Rate 12/18 0651 97.9 71 20 114/74 90 Room Air 12/17 2241 98.2 70 111/73 90 Room Air 12/17 2001 76 110/80 12/17 1634 Room Air 12/17 1501 99.1 73 20 134/68 94 12/17 0958 68 118/68 12/17 0958 68 118/68 Intake & Output 12/18 0800 12/18 0000 12/17 1600 12/17 0812/17 0000 12/16 1600 Intake Total 800 940 900 465 850 Output Total 500 300 400 650 900 Balance -500 500 540 250 -435 850 Intake, IV 140 600 225 600 Intake, Oral 800 800 300 240 250 Output, Urine 500 300 400 650 900 Patient 188 lb 176 lb Weight Physical Exam: Well-developed well-nourished no apparent distress. HEENT: Atraumatic, extraocular motion intact Neck: Supple, no lymphadenopathy Respiratory: No respiratory distress Extremities: No edema LEFT lower extremity dressing in place, Dressing with small amount of bright red bloody drainage at distal 1/3rd of incision. dressing changed, dsd applied. Range of motion is 5-60. Compression wrap in place. ALPS in place Neurovascularly intact distally Bilateral calves are supple, nontender. Neuro: Alert and oriented x3 Psych: Mood affect normal, normal memory normal judgment. Skin: Warm and dry, no rash on exposed skin Results Last 48 Hours of Labs: Laboratory Tests 12/17 08 Chemistry Sodium (137 - 145 mmol/L) 142 Potassium (3.5 - 5.1 mmol/L) 4.3 Chloride (98 - 107 mmol/L) 108 H Carbon Dioxide (22 - 30 mmol/L) 26 Anion Gap (5 - 16) 8 BUN (7 - 17 mg/dL) 18 H Creatinine (0.5 - 1.0 mg/dL) 0.8 Estimated GFR (>60 ml/min) > 60 BUN/Creatinine Ratio (7 - 25 %) 22.5 Hematology CBC w Diff NO MAN DIFF REQ WBC (4.8 - 10.8 /CUMM) 12.5 H RBC (4.20 - 5.40 /CUMM) 2.93 L Hgb (12.0 - 16.0 G/DL) 9.7 L Hct (37 - 47 %) 28.4 L MCV (81.0 - 99.0 FL) 97.1 MCH (27.0 - 31.0 PG) 33.3 H MCHC (33.0 - 37.0 G/DL) 34.3 RDW (11.5 - 14.5 %) 13.7 Plt Count (130 - 400 /CUMM) 193 MPV (7.4 - 10.4 FL) 7.6 Gran % (42.2 - 75.2 %) 79.3 H Lymphocytes % (20.5 - 51.1 %) 14.3 L Monocytes % (1.7 - 9.3 %) 6.1 Eosinophils % (0 - 5 %) 0.1 Basophils % (0.0 - 2.0 %) 0.2 Absolute Granulocytes (1.4 - 6.5 /CUMM) 9.9 H Absolute Lymphocytes (1.2 - 3.4 /CUMM) 1.8 Absolute Monocytes (0.10 - 0.60 /CUMM) 0.8 H Absolute Eosinophils (0.0 - 0.7 /CUMM) 0 Absolute Basophils (0.0 - 0.2 /CUMM) 0 Assessment/Plan Assessment/Plan Post op day #2 sp L TKA Pain meds as needed. Out of bed Physical therapy, weightbearing as tolerated on-Q out dressing changed. dsd daily Regular diet Eliquis for DVT prophylaxis (history of DVT and PE 2 postoperatively, has IVC filter) ALPS for DVT prophylaxis Regular home meds plan for transfter to ecf tomorrow. work on knee extension-dw pt, no pillows behind knee or thigh. Core Measures Venous Thromboembolism VTE Risk Factors Surgery No Mechanical VTE Prophylaxis d/t N/A MechProphylax Ordered No VTE Pharm Prophylaxis d/t NA PharmProphylax ordered
--- NOTE | 2017-12-18 09:12 | RADIOLOGY REPORT ---
EXAMINATION: XR KNEE, LEFT CLINICAL INFORMATION: Status post left total knee arthroplasty COMPARISON: None TECHNIQUE: Two views of the left knee. FINDINGS: Prosthetic components of the left total knee arthroplasty are appropriately aligned without periprosthetic fracture or abnormal lucency. No component migration. No joint effusion. There is a 0.7 cm ossific density at the posterior joint line seen on the lateral view. This is likely in the lateral soft tissues. IMPRESSION: Appropriate alignment of the left total knee arthroplasty without evidence of complications.
[2017-12-18 15:09] VITALS: BP 120/84
[2017-12-18 22:42] VITALS: BP 138/70
[2017-12-19 07:00] VITALS: BP 118/82
--- NOTE | 2017-12-19 08:32 | PN- Orthopedic ---
Subjective Subjective: No events overnight. Patient states her pain is better controlled this am with Oxycodone. Denies any numbness or tingling. She is ambulating the hallway. Denies any locking or grinding sensation. Tolerating her diet without nausea or emesis. Voiding freely. Passing flatus but no bowel movement. Objective Vital Signs and I&Os Vital Signs Date Time Temp Pulse Resp B/P B/P Pulse O2 O2 Flow FiO2 Mean Ox Delivery Rate 12/19 0700 98.1 70 18 118/82 98 Room Air 12/18 2242 99.3 77 18 138/70 94 Room Air 12/18 2145 69 120/84 12/18 1509 98.3 69 20 120/84 97 12/18 1011 97.9 71 20 114/74 12/18 1010 97.9 71 20 74 Intake & Output 12/19 1600 12/19 0800 12/19 0000 12/18 1600 12/18 0800 12/18 0000 Intake Total 620 360 900 50 800 Output Total 500 250 500 300 Balance 620 -140 650 -450 500 Intake, IV 260 100 0 Intake, Oral 360 360 800 50 800 Number 0 Bowel Movements Output, Urine 500 250 500 300 Physical Exam: Afebrile, VSS. Sitting in bed in NAD. Cardiac: RRR Pulmonary: CTAB Abdominal: Soft, non tender LLE: Dressing in place, minimal bloody drainage noted to distal 1/3 of incision. No active drainage noted. No hematoma appreciated. New DSD applied. Compression wrap in place. Able to wiggle toes. Sensation and motor grossly intact. + DP/PT pulse, mild pedal edema. Calf is soft and compressible, negative Ernesto's. Assessment/Plan Assessment/Plan 76 y/o female post op day #3 sp L TKA, doing well post operatively. Pain controlled on PO Oxycodone. Tolerating diet. - Continue regular diet - PO pain control and antiemetics prn - Encourage OOB/IS - PT following, WBAT - Continue DSD daily - DVT ppx - Eliquis 2.5 mg BID and ALPS ( hx of DVT and PE x 2 postoperatively, has IVC filter) - Continue home medications - Awaiting bowel movement - on bowel regimen - Plan for possible transfer to [facility] today - will d/w Dr. Estevez Core Measures Venous Thromboembolism VTE Risk Factors Surgery No Mechanical VTE Prophylaxis d/t N/A MechProphylax Ordered No VTE Pharm Prophylaxis d/t NA PharmProphylax ordered
[2017-12-19] MEDS ORDERED: PERCOCET 5-3251 EACH PO (09:07)
[2017-12-19 13:04] VITALS: BP 118/82
[2017-12-19 14:03] VITALS: BP 120/82
== END 2017-12-19 14:56 | DRG 470 ==
LOC: SDA 00:43 → ENRESERV 10:34 → ENTRNSPT 11:41 → EDTRNSPT 11:46 → EDTRNSPTSTS 11:46 → CMPTRNSPT 11:55 → 2NA 11:56 → ENPENDDIS 12-19 09:40 → 2NA 12-19 14:56
PROVIDERS: Physician Assistant Surgical
PROC: 0SRD0J9 Replacement of Left Knee Joint with Synthetic Substitute, Cemented, Open Approach (ICD-10-PCS; principal; 2017-12-16)
DX: M17.12 Unilateral primary osteoarthritis, left knee (principal); E03.9 Hypothyroidism, unspecified; I10 Essential (primary) hypertension; Z86.711 Personal history of pulmonary embolism; F41.9 Anxiety disorder, unspecified; F32.9 Major depressive disorder, single episode, unspecified; Z86.718 Personal history of other venous thrombosis and embolism; Z79.01 Long term (current) use of anticoagulants; K21.9 Gastro-esophageal reflux disease without esophagitis
CPT/HCPCS: 2NASP; 36415; 36592; 73560-LT; 82436; 87086; 97110-GO; 97116-GO; 97161-GP; 97530-GO; C1713; J0131; J0690; J1100; J1885; J2405; J2795; J3370; J7040; J7060